=== PATIENT | male | born 1990 ===

== ENCOUNTER 2023-11-16 02:47 | Emergency (ER) | payer OTHER ==
[~2023-11-16] VITALS: Ht 177.8 cm; Wt 86.2 kg
[2023-11-16 03:24] VITALS: BP 139/86
== END 2023-11-16 03:24 | disposition home or self-care (01) ==
LOC: ED 02:47
DX: K02.9 Dental caries, unspecified (principal); Z88.0 Allergy status to penicillin
CPT/HCPCS: 99282

== ENCOUNTER 2024-10-25 11:38 | Emergency (ER) | payer OTHER ==
[~2024-10-25] VITALS: Ht 177.8 cm; Wt 80.3 kg
[2024-10-25] MEDS ORDERED: HYDROXYZINE PAM25 MG PO (12:02)
[2024-10-25] MEDS ORDERED: VRAYLAR1.5 MG PO (12:02)
[2024-10-25 12:26] LABS: BASOPHILS 0.6 % (0-2); HEMATOCRIT 43.7 % (35.0-50.0); HEMOGLOBIN 15.2 g/dL (12.0-18.0); MCH 31.4 (27-36); MCHC 34.7 g/dl (30-36); MCV 90.6 fl (81-99); MONOCYTES 10.8 % (0-12); NEUTROPHILS 52.6 % (39-80); PLATELET COUNT 359 K/uL (140-440); RBC 4.83 M/ul (4.3-5.7); RDW 13.7 (10.5-15.0)
[2024-10-25 12:41] LABS: ALBUMIN 3.8 g/dL (3.4-5.0); ALBUMIN/GLOBULIN RATIO 1.06 (1.1-2.4); ANION GAP 13.9 (7-21); BILIRUBIN, TOTAL 0.2 ng/dL (0.2-1.0); BUN/CREATININE RATIO 15.73 (6.0-28.6); CALCIUM 9.6 mg/dL (8.5-10.1); CREATININE, SERUM 0.89 mg/dL (0.70-1.30); POTASSIUM 3.9 mmol/L (3.5-5.1); PROTEIN, TOTAL 7.4 g/dL (6.4-8.2)
[2024-10-25 14:30] VITALS: BP 101/68
--- NOTE | 2024-10-25 21:35 | EKG ---
[facility] [address] [facility] [place] [address] Signed Normal sinus rhythm Normal ECG No previous ECGs available Confirmed by Nelson Welsh MD () on 10/25/2024 9:35:23 PM Electronically Signed By: NELSON WELSH MD [id number] PATIENT NAME: GILBERTO WOODALL Electrocardiogram DATE OF : [birth year] PHYSICIAN: NELSON WELHS MD REPORT #: [id number] REPORT IS CONFIDENTIAL AND NOT TO BE RELEASED WITHOUT AUTHORIZATION
== END 2024-10-25 14:25 | disposition home or self-care (01) ==
LOC: ED 11:38
PROVIDERS: Emergency Medicine
DX: R00.2 Palpitations (principal); F41.9 Anxiety disorder, unspecified; Z88.0 Allergy status to penicillin; Z79.899 Other long term (current) drug therapy
CPT/HCPCS: 36415; 80053; 83735; 85025; 93005; 93010; 99285

== ENCOUNTER 2025-04-10 10:39 | Emergency (ER) | payer OTHER ==
[~2025-04-10] VITALS: Ht 177.8 cm; Wt 90.0 kg
[~2025-04-10 10:39] MED LIST: HYDROXYZINE PAM25 MG PO; VRAYLAR1.5 MG PO
[2025-04-10 11:06] LABS: BASOPHILS 0.7 % (0.2-1.2); EOSINOPHILS 2.9 % (0.8-7.0); LYMPHOCYTES 40.4 % (21.8-53.1); MCH 30.5 PG (25.7-32.2); MCHC 33.7 g/dL (32.3-36.5); MCV 90.6 fL (79.0-92.2); MONOCYTES 9.6 % (5.3-12.2); NEUTROPHILS 46.1 % (34.0-67.9); RBC 4.78 M/uL (4.63-6.08)
[2025-04-10 11:32] LABS: ALT (SGPT) 28 U/L (14-59); AST (SGOT) 18 U/L (15-37); GLOMERULAR FILTRATION RATE,EST 99 mL/min (>60); PROTEIN, TOTAL 7.2 g/dL (6.4-8.2); TSH, 3RD GENERATION 1.991 uIU/mL (0.358-3.740); UREA NITROGEN 10 mg/dL (7-18)
[2025-04-10 11:54] LABS: AMPHETAMINES, URINE NEGATIVE (NEGATIVE); BARBITURATES, URINE NEGATIVE (NEGATIVE); BENZODIAZEPINE, URINE NEGATIVE (NEGATIVE); CANNABINOID, URINE NEGATIVE (NEGATIVE); COCAINE, URINE NEGATIVE (NEGATIVE); ECSTASY, URINE NEGATIVE (NEGATIVE); FENTANYL, URINE NEGATIVE (NEGATIVE); METHADONE, URINE NEGATIVE (NEGATIVE); OPIATES, URINE NEGATIVE (NEGATIVE); OXYCODONE, URINE NEGATIVE (NEGATIVE); PHENCYCLIDINE, URINE NEGATIVE (NEGATIVE)
[2025-04-10 13:43] VITALS: BP 124/82
--- NOTE | 2025-04-12 17:46 | EKG ---
[facility] [address] [facility] [place] [address] Signed Normal sinus rhythm Possible Left atrial enlargement Borderline ECG When compared with ECG of 25-OCT-2024 12:21, No significant change was found Confirmed by Ester Medina DO ([id number]) on 04/12/2025 5:46:24 PM Electronically Signed By: ESTER MEDINA DO 04/12/25 174 PATIENT NAME: GILBERTO WOODALL Electrocardiogram DATE OF : [birth year] PHYSICIAN: ESTER MEDINA DO REPORT #: [id number] REPORT IS CONFIDENTIAL AND NOT TO BE RELEASED WITHOUT AUTHORIZATION
== END 2025-04-10 13:39 | disposition home or self-care (01) ==
LOC: ED 10:39
PROVIDERS: Emergency Medicine
DX: R00.8 Other abnormalities of heart beat (principal); Z88.0 Allergy status to penicillin; Z79.899 Other long term (current) drug therapy
CPT/HCPCS: 36415; 80053; 80307; 83735; 84439; 84443; 84484; 85025; 93005; 93010; 99284